=== PATIENT | male | born 1965 | race African-American/Black ===

== ENCOUNTER 2020-08-07 03:23 | Inpatient (IN) | payer OTHER ==
--- OUTSIDE RECORDS SUMMARY | 2020-08-07 03:42 | XMS ---
:1965 [facility] Support Name Relationship Address Phone RE Unavailable Unavailable Unavailable TIA LEVY BROTHER [address] [place] [address] Re-disclosure Warning The records that you are about to access may contain information from federally- assisted alcohol or drug abuse programs. If such information is present, then the following federally mandated warning applies: This information has been disclosed to you from records protected by federal confidentiality rules (42 CFR part 2). The federal rules prohibit you from making any further disclosure of this information unless further disclosure is expressly permitted by the written consent of the person to whom it pertains or as otherwise permitted by 42 CFR part 2. A general authorization for the release of medical or other information is NOT sufficient for this purpose. The Federal rules restrict any use of the information to criminally investigate or prosecute any alcohol or drug abuse patient.The records that you are about to access may contain highly sensitive health information, the redisclosure of which is protected by Article 27-F of the [facility] Public Health law. If you continue you may haveaccess to information: Regarding HIV / AIDS; Provided by facilities licensed or operated by the [facility] Office of Mental Health; or Provided by the [facility] Office for People With Developmental Disabilities. If such information is present, then the following [facility] mandated warning applies: This information has been disclosed to you from confidential records which are protected by state law. State law prohibits you from making any further disclosure of this information without the specific written consent of the person to whom it pertains, or as otherwise permitted by law. Any unauthorized further disclosure in violation of state law may result in a fine or usp sentence or both. A general authorization for the release of medical or other information is NOT sufficient authorization for further disclosure. Insurance Providers Payer name Policy type / Policy ID Covered Covered constitution party's Policy Plan Coverage type constitution party ID relationship to [employer]raz[employer] Information terrazas [facility] [id number]
[2020-08-07 03:50] VITALS: BMI 28.2
--- NOTE | 2020-08-07 04:32 | PDOC ---
History of Present Illness - General Chief Complaint: Pain, Acute Stated Complaint: PAIN TO EXTREMITIES Time Seen by Provider: 08/07/20 04:03 History Source: Patient - History of Present Illness Initial Comments: 08/07/20 05:11 54 year old male Report that he has been having palpitation and numbness and tingling to his hands and feet after taking Ayurvedic combination medication with his blood pressure medication and diuretics. Patient reported that he stopped taking the medication ordered online 2 days ago however continues to have palpitations. denies chest pain, Nausea, vomiting, fever/ chills, dizziness Past History - Medical History Allergies/Adverse Reactions: Allergies Allergy/AdvReac Type Severity Reaction Status Date / Time mayonnaise Allergy Unverified 08/09/20 12:46 shellfish derived Allergy Verified 08/07/20 03:50 Home Medications: Ambulatory Orders Amlodipine Besylate [Norvasc -] 10 mg PO DAILY 08/07/20 Atorvastatin Calcium [Lipitor] 20 mg PO HS 08/07/20 Spironolactone 25 mg PO DAILY 08/07/20 Metoprolol Tartrate [Lopressor -] 25 mg PO BID #60 tablet 08/09/20 - Psycho-Social/Smoking History Smoking History: Never smoked Information on smoking cessation initiated: No - Substance Abuse Hx (Audit-C & DAST Scrn) How often the patient has a drink containing alcohol: Never Score: In Men: 4 or > Positive; In Women: 3 or > Positive: 0 Screen Result (Pos requires Nsg. Audit-10AR): Negative In the last yr the pt used illegal drug/Rx for NonMed reason: No Score: Yes response is considered Positive: 0 Screen Result (Positive result requires Nsg. DAST-10): Negative *Physical Exam - Vital Signs Last Vital Signs Temp Pulse Resp BP Pulse Ox 98.6 F 86 16 133/96 98 08/07/20 03:37 08/07/20 03:37 08/07/20 03:37 08/07/20 03:37 08/07/20 03:37 - Physical Exam General Appearance: Yes: Appropriately Dressed HEENT: positive: Normal ENT Inspection Respiratory/Chest: positive: Lungs Clear, Normal Breath Sounds Cardiovascular: positive: Regular Rhythm, Regular Rate Extremity: positive: Normal Capillary Refill, Normal Inspection, Normal Range of Motion Integumentary: positive: Normal Color, Dry, Warm Neurologic: positive: Fully Oriented, Alert, Normal Mood/Affect ED Treatment Course - LABORATORY CBC & Chemistry Diagram: 08/07/20 04:40 08/09/20 05:30 Medical Decision Making - Medical Decision Making 08/07/20 05:13 A: palpitations; hyponatremia P: labs EKg patient signed out to IM resident. patient admitted under dr. rodriguez service 08/07/20 06:22 Discharge - Discharge Information Problems reviewed: Yes Clinical Impression/Diagnosis: Palpitations, Hyponatremia, Hypokalemia Condition: Stable Disposition: HOME - Admission Yes - Follow up/Referral - Patient Discharge Instructions - Post Discharge Activity
[2020-08-07 05:13] LABS: BASO % 0.6 % (0-2.0); EOS % 0.4 % (0-4.5); HEMATOCRIT 45.1 % (35.4-49); HEMOGLOBIN 15.3 GM/dL (11.7-16.9); LYMPH % 30.4 % (8-40); MCH 27.4 pg (25.7-33.7); MCHC 33.9 g/dl (32.0-35.9); MEAN CELL VOLUME 80.8 fl (80-96); MONO % 8.8 % (3.8-10.2); NEUT % 59.8 % (42.8-82.8); PLATELET COUNT 485 K/MM3 (134-434); RBC 5.58 M/mm3 (4.00-5.60); WHITE BLOOD COUNT 7.6 K/mm3 (4.0-10.0)
[2020-08-07 05:43] LABS: ALBUMIN 4.3 g/dl (3.4-5.0); ALK PHOS 68 U/L (45-117); ANION GAP 11 MMOL/L (8-16); BILIRUBIN,TOTAL 0.6 mg/dL (0.2-1); BLOOD UREA NITROGEN 17.9 mg/dL (7-18); CALCIUM 9.1 mg/dL (8.5-10.1); CHLORIDE 87 mmol/L (98-107); CO2 27 mmol/L (21-32); GLUCOSE,RANDOM 97 mg/dL (74-106); MAGNESIUM 2.1 mg/dL (1.8-2.4); POTASSIUM 3.2 mmol/L (3.5-5.1); SGOT/AST 30 U/L (15-37); SGPT/ALT 39 U/L (13-61); SODIUM 125 mmol/L (136-145); TOT PROT 8.9 g/dl (6.4-8.2)
[2020-08-07] MEDS ORDERED: SODIUM CHLORIDE 1,000 ML IV STA (05:52)
[2020-08-07] MEDS ORDERED: POTASSIUM CHLORIDE TABS 20 MEQ TABLET.ER (FP) PO ONE ×3 (05:53→21:32)
--- OUTSIDE RECORDS SUMMARY | 2020-08-07 06:28 | XMS ---
:1965 [facility] Support Name Relationship Address Phone RE, RETIRED Unavailable Unavailable Unavailable RE Unavailable Unavailable Unavailable TIA LEVY BROTHER [address] [place] [address] Re-disclosure Warning The records that you are [...] is protected by Article 27-F of the [facility] Public Health law. If you continue you may haveaccess to information: Regarding HIV / AIDS; Provided by facilities licensed or operated by the [facility] Office of Mental Health; or Provided by the [facility] Office for People With Developmental Disabilities. If such information is present, then the following [facility] mandated warning applies: This information has been [...] law may result in a fine or chcf sentence or both. A general authorization for the release of medical or other information is NOT sufficient authorization for further disclosure. Insurance Providers Payer name Policy type / Policy ID Covered Covered democrat's Policy Plan Coverage type democrat ID relationship to Terrazas Information [facility]razas [facility] [id number]
[2020-08-07] MEDS ORDERED: KCL 10 MEQ IVPB 10 MEQ/100 ML INFUS.BAG IVPB ONE (06:31)
[2020-08-07] MEDS: KCL 10 MEQ IVPB 10 MEQ/100 ML INFUS.BAG IVPB SCH ×2 (06:33→07:45)
--- NOTE | 2020-08-07 07:23 | HP ---
CHIEF COMPLAINT: palpatations PCP: Dr Rios HISTORY OF PRESENT ILLNESS: Patient is a 54 y/o male with a history of CKD stage 3 and HTN who presents for palpatations. Patients CKD is related to the HTN, he has recently been taking herbal supplements from [place] to help with his kidney function. The list includes: asparagus racemosus, azadirachta indica, balsamodendron za, berberies arstata, juniper berries, crateva nurvala, celery, marshmallow root, denelion root, kaasni, and tribulus. patient has been feelign palpatations for a few days. Notes the palpatations have been coming and going for a few days, nothing brings it on and they last for a few hours. Patient denies fever chills, dizziness, tremors, syncope, or nausea. ER course was notable for: (1) (2) (3) Recent Travel: PAST MEDICAL HISTORY: CKD stage 3 and HTN PAST SURGICAL HISTORY: denies Social History: Smoking: denies Alcohol: denies Drugs: denies Allergies shellfish derived Allergy (Verified 08/07/20 03:50) HOME MEDICATIONS: REVIEW OF SYSTEMS CONSTITUTIONAL: Absent: fever, chills, diaphoresis, generalized weakness, malaise, loss of appetite, weight change HEENT: Absent: rhinorrhea, nasal congestion, throat pain, throat swelling, difficulty swallowing, mouth swelling, ear pain, eye pain, visual changes CARDIOVASCULAR: palpitations Absent: chest pain, syncope, irregular heart rate, lightheadedness, peripheral edema RESPIRATORY: Absent: cough, shortness of breath, dyspnea with exertion, orthopnea, wheezing, stridor, hemoptysis GASTROINTESTINAL: Absent: abdominal pain, abdominal distension, nausea, vomiting, diarrhea, constipation, melena, hematochezia GENITOURINARY: Absent: dysuria, frequency, urgency, hesitancy, hematuria, flank pain, genital pain MUSCULOSKELETAL: Absent: myalgia, arthralgia, joint swelling, back pain, neck pain SKIN: Absent: rash, itching, pallor HEMATOLOGIC/IMMUNOLOGIC: Absent: easy bleeding, easy bruising, lymphadenopathy, frequent infections ENDOCRINE: Absent: unexplained weight gain, unexplained weight loss, heat intolerance, cold intolerance NEUROLOGIC: Absent: headache, focal weakness or paresthesias, dizziness, unsteady gait, seizure, mental status changes, bladder or bowel incontinence PSYCHIATRIC: Absent: anxiety, depression, suicidal or homicidal ideation, hallucinations. PHYSICAL EXAMINATION Vital Signs - 24 hr 08/07/20 08/07/20 03:37 06:17 Temperature 98.6 F 98.7 F Pulse Rate 86 Pulse Rate [ 80 Left Radial] Respiratory 16 18 Rate Blood Pressure 133/96 Blood Pressure 127/82 [Left Arm] O2 Sat by Pulse 98 98 Oximetry (%) GENERAL: Awake, alert, and fully oriented, in no acute distress. HEAD: Normal with no signs of trauma. EYES: Pupils equal, round and reactive to light, extraocular movements intact, sclera anicteric, . EARS, NOSE, THROAT: . Moist mucous membranes. NECK: Normal range of motion, supple without lymphadenopathy, JVD, or masses. LUNGS: Breath sounds equal, clear to auscultation bilaterally. No wheezes, and no crackles. No accessory muscle use. HEART: Regular rate and rhythm, normal S1 and S2 without murmur, rub or gallop. ABDOMEN: Soft, nontender, not distended, normoactive bowel sounds, no guarding, no rebound, no masses. No hepatomegaly orsplenomegaly. MUSCULOSKELETAL: Normal range of motion at all joints. LOWER EXTREMITIES: 2+ pulses, warm, well-perfused. No calf tenderness. No per ipheral edema. NEUROLOGICAL: no tremors Normal gait. PSYCHIATRIC: Cooperative. Good eye contact. Appropriate mood and affect. SKIN: Warm, dry, normal turgor, no rashes or lesions noted, normal capillary refill. CBC, BMP 08/07/20 04:40 08/07/20 07:58 ASSESSMENT/PLAN: Patient is a 54 y/o male with a history of CKD stage 3 and HTN who is admitted for palpatations likely 2/2 to electrolyte abdnormality. #Palpatations - in the setting of hyponatremia and hypokalemia - hyponatremia of unknown source, appears euvolemic, could be 2/2 to chl orathalidone use - f/u urine and serum osmolality - monitor NA Q6h, do not have it increase over 10 - will continue NS @ 100 - Nephro on board - f/u cortisol, tsh for endocrine causes of hyponatremia - CXR clear: unlikely malignancy related hyponatremia #hx CKD - continue to monitor cr, unknown baseline - followed by fadi #DVT ppx: heparin tid FEN - renal diet - NS @ 100 Dispo: monitor on tele Family Medical History Family History: As Documented Visit type - Emergency Visit Emergency Visit: Yes ED Registration Date: 08/07/20 Care time: The patient presented to the Emergency Department on the above date and was hospitalized for further evaluation of their emergent condition. - New Patient This patient is new to me today: Yes Date on this admission: 08/09/20 - Critical Care Critical Care patient: No ATTENDING PHYSICIAN STATEMENT I saw and evaluated the patient. I reviewed the resident's note and discussed the case with the resident. I agree with the resident's findings and plan as documented. SUBJECTIVE: OBJECTIVE: ASSESSMENT AND PLAN:
--- NOTE | 2020-08-07 07:28 | PN ---
Teaching Attending Note Name of Resident: Archie Duncan (Nephrology) ATTENDING PHYSICIAN STATEMENT I saw and evaluated the patient. I reviewed the resident's note and discussed the case with the resident. I agree with the resident's findings and plan as documented. Pt is a 54 year old male with pmhx of ckd, htn, hld, who presents with palpitations for 3 days. He was found to be hyponatremic and hypokalemic. He was on chlorthalisone and aldactone. he went to an herbal specialist who started about 11 substances. Some of which can cause a diuresis. He feels better today. pmhx htn hld allergies shelfish ros neg familh hx non contrib Current Medications Generic Name Dose Route Start Last Admin Trade Name Freq PRN Reason Stop Dose Admin Amlodipine Besylate 10 mg 08/08/20 10:17 Norvasc - PO DAILY FRANSICO Atorvastatin Calcium 20 mg 08/07/20 22:00 Lipitor - PO HS FRANSICO Heparin Sodium (Porcine) 5,000 unit 08/07/20 14:00 Heparin - SQ TID FRANSICO Sodium Chloride 1,000 mls @ 100 mls/hr 08/07/20 08:45 08/07/20 08:52 Normal Saline - IV 100 mls/hr ASDIR FRANSICO Administration Spironolactone 25 mg 08/08/20 10:18 Aldactone - PO DAILY FRANSICO Laboratory Tests 08/07/20 08/07/20 08/07/20 04:40 07:19 07:58 Sodium 125 L 128 L Potassium 3.5 Serum Osmolality 272 L TSH 1.16 Cortisol AM Sample 08/07/20 07:58 Sodium Potassium Serum Osmolality TSH Cortisol AM Sample Pending cardio s1s2 pulm clear GI soft ext neg edema neuro awake and alert Impression 1. hyponatremia 2. hypokalemia 3. htn 4. ckd 5. hld Plan - replace potassium - cont saline - hold supplements - stop chlorthalidone - monitor lytes - check ultrasound
[2020-08-07 07:55] LABS: URINE APPEARANCE CLEAR; URINE BILIRUBIN NEGATIVE (NEGATIVE); URINE COLOR YELLOW; URINE GLUCOSE (UA) NEGATIVE (NEGATIVE); URINE KETONE TRACE (NEGATIVE); URINE LEUK ESTERASE NEGATIVE (NEGATIVE); URINE NITRITE NEGATIVE (NEGATIVE); URINE PROTEIN NEGATIVE (NEGATIVE); URINE UROBILINOGEN 0.2 mg/dL (0.2-1.0)
[2020-08-07] MEDS ORDERED: KCL 10 MEQ IVPB 20 MEQ/200 ML INFUS.BAG IVPB ONE (07:58)
[2020-08-07 08:39] LABS: ANION GAP 8 MMOL/L (8-16); BLOOD UREA NITROGEN 17.7 mg/dL (7-18); CHLORIDE 91 mmol/L (98-107); CO2 30 mmol/L (21-32); CREATININE 1.9 mg/dL (0.55-1.3); GLUCOSE,RANDOM 79 mg/dL (74-106); MAGNESIUM 2.2 mg/dL (1.8-2.4); PHOSPHOROUS 3.4 mg/dL (2.5-4.9); POTASSIUM 3.5 mmol/L (3.5-5.1); SODIUM 128 mmol/L (136-145)
[2020-08-07] MEDS ORDERED: SODIUM CHLORIDE 1,000 ML IV SCH (08:45)
--- NOTE | 2020-08-07 11:09 | EKG ---
Test Reason : Blood Pressure : / mmHG Vent. Rate : 095 BPM Atrial Rate : 095 BPM P-R Int : 166 ms QRS Dur : 084 ms QT Int : 350 ms P-R-T Axes : 075 000 073 degrees QTc Int : 439 ms NORMAL SINUS RHYTHM RIGHT ATRIAL ENLARGEMENT BORDERLINE ECG NO PREVIOUS ECGS AVAILABLE Confirmed by MD Mikayla, Lazaro ([id number]) on 08/07/2020 11:09:11 AM Referred By: Confirmed By:Lazaro Degroot MD
--- NOTE | 2020-08-07 11:26 | CONSULT ---
Consultation: REQUESTING PROVIDER: Dr. Lindquist Nephrology service- resident consult note CONSULT REQUEST: We have been asked to medically evaluate this patient for acute kidney injury, hyponatremia. HISTORY OF PRESENT ILLNESS: Patient is a 54 year old male with history of CKD III, hypertension, hyperlipidemia, presents with complaint of palpitations ongoing for the past three days. Denies clear inciting features. Patient does endorse recently starting numerous herbal supplements last week due to concern over his kidney function. In addition he is taking Chlorthalidone with Spronolactone. Upon admission, patient noted to be hyponatremic to 125, with BUN 17.9 Cr 2.0. Admits prior cardiac workup with exercise stress test over 10 years ago which he states was normal result. Denies syncopal episode. Denies subjective fevers, chills, shortness of breath, chest pain, abdominal pain, nausea, vomiting. Medical history: hypertension, hyperlipidemia, chronic kidney disease Surgical history: denies Family history: Mother: passed due to RI at 37 years old Father: hypertension Social: Denies illicit drug use, alcohol consumption. Denies cigarette smoking. REVIEW OF SYSTEMS: As per HPI PHYSICAL EXAMINATION Vital Signs - 24 hr 08/07/20 08/07/20 08/07/20 03:37 06:17 10:47 Temperature 98.6 F 98.7 F Pulse Rate 86 Pulse Rate [ 80 71 Left Radial] Respiratory 16 18 17 Rate Blood Pressure 133/96 Blood Pressure 127/82 125/97 [Left Arm] O2 Sat by Pulse 98 98 97 Oximetry (%) GENERAL: The patient is awake, alert, and fully oriented, in no acute distress. HEAD: Normocephalic, atraumatic. EYES: PERRL, extraocular movements intact, sclera anicteric, conjunctiva clear. ENT: Oropharynx clear, without erythema or exudates. Moist mucous membranes. NECK: Trachea midline, full range of motion. Supple without lymphadenopathy. LUNGS: Breath sounds equal, clear to auscultation bilaterally. No wheezes, no crackles. No accessory muscle use. HEART: Regular rate and rhythm. S1, S2 without murmur, rub or gallop. ABDOMEN: Soft, nondistended, nontender to light and deep palpation x4 quadrants. No rebound tenderness, no guarding. Normoactive bowel sounds x4 quadrants. No hepatosplenomegaly, no masses appreciated. EXTREMITIES: 2+ radial, dorsalis pedis pulses bilaterally. Warm, well-perfused. No lower extremity edema bilaterally. NEUROLOGICAL: Cranial nerves II through XII grossly intact. Normal speech. No gross focal deficits. PSYCH: Normal mood, normal affect upon my encounter. SKIN: Warm, dry Laboratory Results - last 24 hr 08/07/20 08/07/20 08/07/20 04:40 04:40 06:28 WBC 7.6 RBC 5.58 Hgb 15.3 Hct 45.1 MCV 80.8 MCH 27.4 MCHC 33.9 RDW 14.0 Plt Count 485 H MPV 7.0 L Absolute Neuts (auto) 4.6 Neutrophils % 59.8 Lymphocytes % 30.4 Monocytes % 8.8 Eosinophils % 0.4 Basophils % 0.6 Nucleated RBC % 0 Sodium 125 L Potassium 3.2 L Chloride 87 L Carbon Dioxide 27 Anion Gap 11 BUN 17.9 Creatinine 2.0 H Est GFR (CKD-EPI)AfAm 41.99 Est GFR (CKD-EPI)NonAf 36.23 Random Glucose 97 Serum Osmolality Calcium 9.1 Phosphorus Magnesium 2.1 Total Bilirubin 0.6 AST 30 ALT 39 Alkaline Phosphatase 68 Creatine Kinase 514 H Creatine Kinase Index 0.4 CK-MB (CK-2) 2.4 Troponin I < 0.02 Total Protein 8.9 H Albumin 4.3 TSH Urine Color Yellow Urine Appearance Clear Urine pH 6.0 Ur Specific Bromide 1.006 L Urine Protein Negative Urine Glucose (UA) Negative Urine Ketones Trace H Urine Blood Negative Urine Nitrite Negative Urine Bilirubin Negative Urine Urobilinogen 0.2 Ur Leukocyte Esterase Negative 08/07/20 08/07/20 07:19 07:58 WBC RBC Hgb Hct MCV MCH MCHC RDW Plt Count MPV Absolute Neuts (auto) Neutrophils % Lymphocytes % Monocytes % Eosinophils % Basophils % Nucleated RBC % Sodium 128 L Potassium 3.5 Chloride 91 L Carbon Dioxide 30 Anion Gap 8 BUN 17.7 Creatinine 1.9 H Est GFR (CKD-EPI)AfAm 44.68 Est GFR (CKD-EPI)NonAf 38.55 Random Glucose 79 Serum Osmolality 272 L Cancelled Calcium 9.0 Phosphorus 3.4 Magnesium 2.2 Total Bilirubin AST ALT Alkaline Phosphatase Creatine Kinase Creatine Kinase Index CK-MB (CK-2) Troponin I < 0.02 Total Protein Albumin TSH 1.16 Urine Color Urine Appearance Urine pH Ur Specific Bromide Urine Protein Urine Glucose (UA) Urine Ketones Urine Blood Urine Nitrite Urine Bilirubin Urine Urobilinogen Ur Leukocyte Esterase Active Medications Generic Name Dose Route Start Last Admin Trade Name Bell PRN Reason Stop Dose Admin Amlodipine Besylate 10 mg 08/08/20 10:17 Norvasc - PO DAILY FRANSICO Atorvastatin Calcium 20 mg 08/07/20 22:00 Lipitor - PO HS FRANSICO Heparin Sodium (Porcine) 5,000 unit 08/07/20 14:00 Heparin - SQ TID FRANSICO Sodium Chloride 1,000 mls @ 100 mls/hr 08/07/20 08:45 08/07/20 08:52 Normal Saline - IV 100 mls/hr ASDIR FRANSICO Administration Spironolactone 25 mg 08/08/20 10:18 Aldactone - PO DAILY FRANSICO ASSESSMENT/PLAN: Patient is a 54 year old male with history of CKD III, hypertension, hyperlipidemia, presents with complaint of palpitations. Impression CKD III Hyponatremia Palpitations Hypertension Hyperlipidemia Plan Hyponatremia likely in setting of thiazide diuretic. Further, several of patient's herbal remedies function as diuretics, compounding potential etiology for hyponatremia. Advised patient to withhold from further herbal supplements at this time. Recommend stopping Chlorthalidone. Sodium responding appropriately. Avoid over-correction greater than 8mmol/ L within 24 hours. Follow urine electrolytes, osmolality Agree with Cortisol to rule out adrenal insufficiency as potential contributing etiology for hyponatremia. Follow BMP Monitor intake, output Avoid nephrotoxic agents Disposition: We will continue to follow the patient. Thank you for this consultative opportunity. Visit type - Emergency Visit Emergency Visit: Yes ED Registration Date: 08/07/20 Care time: The patient presented to the Emergency Department on the above date and was hospitalized for further evaluation of their emergent condition. - New Patient This patient is new to me today: Yes Date on this admission: 08/07/20 - Critical Care Critical Care patient: No ATTENDING PHYSICIAN STATEMENT I saw and evaluated the patient. I reviewed the resident's note and discussed the case with the resident. I agree with the resident's findings and plan as documented. SUBJECTIVE: OBJECTIVE: ASSESSMENT AND PLAN:
[2020-08-07 14:05] LABS: BLOOD UREA NITROGEN 17.9 mg/dL (7-18); CALCIUM 8.8 mg/dL (8.5-10.1); CREATININE 1.9 mg/dL (0.55-1.3); POTASSIUM 3.6 mmol/L (3.5-5.1)
[2020-08-07] MEDS: HEPARIN NA (PORCINE) 5,000 UNITS/ML 1ML VIAL SQ SCH ×2 (14:41→21:01)
[2020-08-07] MEDS ORDERED: FLU VACCINE (FLULAVAL) PF 60 MCG/0.5 ML SYRINGE 2020-2021 IM ONE (19:27)
[2020-08-07 20:25] LABS: BLOOD UREA NITROGEN 21.9 mg/dL (7-18); CALCIUM 9.2 mg/dL (8.5-10.1); CREATININE 1.8 mg/dL (0.55-1.3); POTASSIUM 3.4 mmol/L (3.5-5.1)
[2020-08-07] MEDS: ATORVASTATIN CA 20 MG TABLET (FP) PO SCH (21:02)
--- NOTE | 2020-08-07 22:00 | PN ---
Teaching Attending Note Name of Resident: Pamela Lindquist ATTENDING PHYSICIAN STATEMENT I saw and evaluated the patient. I reviewed the resident's note and discussed the case with the resident. I agree with the resident's findings and plan as documented. SUBJECTIVE: Patient seen and examined at bedside, admitted for volume depletion, hyponatremia, weakness and palpitations taking many different herbal supplements. OBJECTIVE: GA tired appearing, AAox3 HEENT NC/AT, no JVD, dry MM Chest CTAB, no crackles CVS s1, s2+, RRR Abd Soft, NT, ND, BS+ Ext no LE edema, no calf tenderness Vital Signs (72 hours) 08/07/20 08/07/20 08/07/20 03:37 06:17 10:47 Temperature 98.6 F 98.7 F Pulse Rate 86 Pulse Rate [ 80 71 Left Radial] Respiratory 16 18 17 Rate Blood Pressure 133/96 Blood Pressure 127/82 125/97 [Left Arm] O2 Sat by Pulse 98 98 97 Oximetry (%) 08/07/20 08/07/20 08/07/20 13:31 14:30 16:00 Temperature 98.6 F 98.1 F Pulse Rate 76 64 Pulse Rate [ 77 Left Radial] Respiratory 19 21 H 20 Rate Blood Pressure 127/88 131/86 Blood Pressure 122/84 [Left Arm] O2 Sat by Pulse 99 97 Oximetry (%) 08/07/20 08/07/20 19:41 20:00 Temperature 98 F Pulse Rate 71 Pulse Rate [ Left Radial] Respiratory 20 12 Rate Blood Pressure 116/82 Blood Pressure [Left Arm] O2 Sat by Pulse 97 100 Oximetry (%) Laboratory Results - last 24 hr 08/07/20 08/07/20 08/07/20 04:40 04:40 06:28 WBC 7.6 RBC 5.58 Hgb 15.3 Hct 45.1 MCV 80.8 MCH 27.4 MCHC 33.9 RDW 14.0 Plt Count 485 H MPV 7.0 L Absolute Neuts (auto) 4.6 Neutrophils % 59.8 Lymphocytes % 30.4 Monocytes % 8.8 Eosinophils % 0.4 Basophils % 0.6 Nucleated RBC % 0 Sodium 125 L Potassium 3.2 L Chloride 87 L Carbon Dioxide 27 Anion Gap 11 BUN 17.9 Creatinine 2.0 H Est GFR (CKD-EPI)AfAm 41.99 Est GFR (CKD-EPI)NonAf 36.23 Random Glucose 97 Serum Osmolality Calcium 9.1 Phosphorus Magnesium 2.1 Total Bilirubin 0.6 AST 30 ALT 39 Alkaline Phosphatase 68 Creatine Kinase 514 H Creatine Kinase Index 0.4 CK-MB (CK-2) 2.4 Troponin I < 0.02 Total Protein 8.9 H Albumin 4.3 TSH Urine Color Yellow Urine Appearance Clear Urine pH 6.0 Ur Specific [place] 1.006 L Urine Protein Negative Urine Glucose (UA) Negative Urine Ketones Trace H Urine Blood Negative Urine Nitrite Negative Urine Bilirubin Negative Urine Urobilinogen 0.2 Ur Leukocyte Esterase Negative Urine Osmolality Ur Random Sodium 08/07/20 08/07/20 08/07/20 07:19 07:58 12:25 WBC RBC Hgb Hct MCV MCH MCHC RDW Plt Count MPV Absolute Neuts (auto) Neutrophils % Lymphocytes % Monocytes % Eosinophils % Basophils % Nucleated RBC % Sodium 128 L Potassium 3.5 Chloride 91 L Carbon Dioxide 30 Anion Gap 8 BUN 17.7 Creatinine 1.9 H Est GFR (CKD-EPI)AfAm 44.68 Est GFR (CKD-EPI)NonAf 38.55 Random Glucose 79 Serum Osmolality 272 L Cancelled Calcium 9.0 Phosphorus 3.4 Magnesium 2.2 Total Bilirubin AST ALT Alkaline Phosphatase Creatine Kinase Creatine Kinase Index CK-MB (CK-2) Troponin I < 0.02 Total Protein Albumin TSH 1.16 Urine Color Urine Appearance Urine pH Ur Specific [place] Urine Protein Urine Glucose (UA) Urine Ketones Urine Blood Urine Nitrite Urine Bilirubin Urine Urobilinogen Ur Leukocyte Esterase Urine Osmolality 145 L Ur Random Sodium 27 L 08/07/20 08/07/20 13:15 19:20 WBC RBC Hgb Hct MCV MCH MCHC RDW Plt Count MPV Absolute Neuts (auto) Neutrophils % Lymphocytes % Monocytes % Eosinophils % Basophils % Nucleated RBC % Sodium 133 L 137 Potassium 3.6 3.4 L Chloride 97 L 99 Carbon Dioxide 27 32 Anion Gap 8 6 L BUN 17.9 21.9 H Creatinine 1.9 H 1.8 H Est GFR (CKD-EPI)AfAm 44.68 47.70 Est GFR (CKD-EPI)NonAf 38.55 41.16 Random Glucose 108 H 91 Serum Osmolality Calcium 8.8 9.2 Phosphorus Magnesium Total Bilirubin AST ALT Alkaline Phosphatase Creatine Kinase Creatine Kinase Index CK-MB (CK-2) Troponin I Total Protein Albumin TSH Urine Color Urine Appearance Urine pH Ur Specific M[place]zon Urine Protein Urine Glucose (UA) Urine Ketones Urine Blood Urine Nitrite Urine Bilirubin Urine Urobilinogen Ur Leukocyte Esterase Urine Osmolality Ur Random Sodium Home Medications Medication Instructions Recorded Amlodipine Besylate [Norvasc -] 10 mg PO DAILY 08/07/20 Atorvastatin Calcium [Lipitor] 20 mg PO HS 08/07/20 Chlorthalidone 25 mg PO DAILY 08/07/20 Spironolactone 25 mg PO DAILY 08/07/20 Current Medications Generic Name Dose Route Start Last Admin Trade Name Bell PRN Reason Stop Dose Admin Amlodipine Besylate 10 mg 08/08/20 10:17 Norvasc - PO DAILY [facility] Atorvastatin Calcium 20 mg 08/07/20 22:00 08/07/20 21:02 Lipitor - PO 20 mg HS [facility] Administration Heparin Sodium (Porcine) 5,000 unit 08/07/20 14:00 08/07/20 21:01 Heparin - SQ 5,000 unit TID [facility] Administration Spironolactone 25 mg 08/08/20 10:18 Aldactone - PO DAILY [facility] ASSESSMENT AND PLAN: 54 M RUSS on CKD HTN Palpitations r/o arrythmia (?due to herbal supplements) HLD Plan: IV hydration w/ NS, trend CRE, avoid overcorrection of sodium DC Diuretics, Norvasc for BP control Renal following Advise strict avoidance of OTC herbal supplements DVT ppx: Heparin SC
[2020-08-08] MEDS: HEPARIN NA (PORCINE) 5,000 UNITS/ML 1ML VIAL SQ SCH ×3 (05:56→21:10)
[2020-08-08] MEDS ORDERED: POTASSIUM CHLORIDE TABS 20 MEQ TABLET.ER (FP) PO ONE (08:30)
[2020-08-08] MEDS: amLODIPine BESYLATE 10 MG TABLET (FP) PO SCH (09:34)
[2020-08-08] MEDS: SPIRONOLACTONE 25 MG TABLET PO SCH (09:34)
[2020-08-08] MEDS ORDERED: SPIRONOLACTONE 25 MG TABLET PO SCH (10:00)
[2020-08-08] MEDS ORDERED: amLODIPine BESYLATE 10 MG TABLET (FP) PO SCH (10:00)
--- NOTE | 2020-08-08 11:24 | HP ---
Admitting History and Physical - Primary Care Physician PCP: Joshua Varela - Admission Chief Complaint: Palpitations. Hyponatremia. Hypokalemia History of Present Illness: Patient is a 54 y/o male with a history of CKD stage 3 and HTN who presents for palpatations. Patients CKD is related to the HTN, he has recently been taking herbal supplements from [place] to help with his kidney function. The list includes: asparagus racemosus, azadirachta indica, balsamodendron za, berberies arstata, juniper berries, crateva nurvala, celery, marshmallow root, denelion root, kaasni, and tribulus. patient has been feelign palpatations for a few days. Notes the palpatations have been coming and going for a few days, nothing brings it on and they last for a few hours. Patient denies fever chills, dizziness, tremors, syncope, or nausea. History Source: Patient Limitations to Obtaining History: No Limitations - Smoking History Smoking history: Never smoked Home Medications - Allergies Allergies/Adverse Reactions: Allergies Allergy/AdvReac Type Severity Reaction Status Date / Time [facility] [place] Allergy Unverified 08/09/20 12:46 shellfish derived Allergy Verified 08/07/20 03:50 - Home Medications Home Medications: Ambulatory Orders Amlodipine Besylate [Norvasc -] 10 mg PO DAILY 08/07/20 Atorvastatin Calcium [Lipitor] 20 mg PO HS 08/07/20 Spironolactone 25 mg PO DAILY 08/07/20 Metoprolol Tartrate [Lopressor -] 25 mg PO BID #60 tablet 08/09/20 Review of Systems - Review of Systems Constitutional: reports: No Symptoms Eyes: reports: No Symptoms HENT: reports: No Symptoms Neck: reports: No Symptoms Cardiovascular: reports: Palpitations Respiratory: reports: No Symptoms Gastrointestinal: reports: No Symptoms Genitourinary: reports: No Symptoms Breasts: reports: No Symptoms Reported Musculoskeletal: reports: No Symptoms Integumentary: reports: No Symptoms Neurological: reports: No Symptoms Endocrine: reports: No Symptoms Hematology/Lymphatic: reports: No Symptoms Psychiatric: reports: No Symptoms Physical Examination Vital Signs: Vital Signs Temperature 98.4 F 08/08/20 10:00 Pulse Rate 89 08/08/20 10:00 Respiratory Rate 15 08/08/20 10:00 Blood Pressure 124/91 08/08/20 10:00 O2 Sat by Pulse Oximetry (%) 99 08/08/20 10:00 Constitutional: Yes: Well Nourished, No Distress, Calm Cardiovascular: Yes: Regular Rate and Rhythm Respiratory: Yes: Regular, CTA Bilaterally Gastrointestinal: Yes: Normal Bowel Sounds, Soft Renal/: Yes: WNL Musculoskeletal: Yes: WNL Extremities: Yes: WNL Edema: No Peripheral Pulses WNL: Yes Neurological: Yes: Alert, Oriented Psychiatric: Yes: Alert, Oriented Labs: CBC, BMP 08/07/20 04:40 08/07/20 19:20 Problem List - Problems (1) Hypokalemia Assessment/Plan: -improved -Supplement KCl -Seen by Nephrology -Monitor trend Problems reviewed: Yes Code(s): E87.6 - HYPOKALEMIA (2) Hyponatremia Assessment/Plan: -Resolved -monitor trend Problems reviewed: Yes Code(s): E87.1 - HYPO-OSMOLALITY AND HYPONATREMIA (3) Palpitations Assessment/Plan: -Resolved -EKG- NSR -Cardiology consult -Tele monitor Problems reviewed: Yes Code(s): R00.2 - PALPITATIONS (4) CKD (chronic kidney disease) Assessment/Plan: -D/C chlorathalidone -Instructed to stop herbal supplements -Nephrology consult Problems reviewed: Yes Code(s): N18.9 - CHRONIC KIDNEY DISEASE, UNSPECIFIED Assessment/Plan See problem list
--- NOTE | 2020-08-08 14:58 | CON.CARD ---
Consult Consult Specialty:: cardiology Referred by:: lionel Reason for Consultation:: palpitations - History of Present Illness Chief Complaint: leg and hand pain/cramping. palpitations/elevated hr History of Present Illness: 54 year old male with a pmhx of ckd, htn, and hld who was recently started on many different herbal supplements. He has been noticing hand and feet cramping and "feeling like they are falling asleep". He than noticed HR elevated so came to the ER. Denies any chest pain or sob or any history of this. Walks often with no exertional complaints. Says he doesn't really feel palpitations but occasional skipped beat. Found to be hyponatremic and hypokalemic. Feels fine at this time. Denies drug or etoh use. Drinks two cups green tea as well a day. EKG sinus rhythm, bren, no ischemic changes Tele: sinus with pvc's Na 125 and K 3.2 - History Source History Provided By: Patient, Medical Record - Smoking History Smoking history: Never smoked Home Medications - Allergies Allergies/Adverse Reactions: Allergies Allergy/AdvReac Type Severity Reaction Status Date / Time shellfish derived Allergy Verified 08/07/20 03:50 - Home Medications Home Medications: Ambulatory Orders Amlodipine Besylate [Norvasc -] 10 mg PO DAILY 08/07/20 Atorvastatin Calcium [Lipitor] 20 mg PO HS 08/07/20 Chlorthalidone 25 mg PO DAILY 08/07/20 Spironolactone 25 mg PO DAILY 08/07/20 Vital Signs: Vital Signs Temperature 98.2 F 08/08/20 13:58 Pulse Rate 83 08/08/20 13:58 Respiratory Rate 16 08/08/20 13:58 Blood Pressure 127/83 08/08/20 13:58 O2 Sat by Pulse Oximetry (%) 97 08/08/20 13:58 Constitutional: Yes: No Distress Neck: Yes: WNL Respiratory: Yes: CTA Bilaterally Gastrointestinal: Yes: Soft Cardiovascular: Yes: Regular Rate and Rhythm JVD: No Carotid Bruit: No PMI: Non-Displaced Heart Sounds: Yes: S1, S2 Murmur: No: Systolic Murmur Edema: No - Other Data Labs, Other Data: CBC, BMP 08/07/20 04:40 08/07/20 19:20 Imaging - Results Chest X-ray: Report Reviewed EKG: Image Reviewed Problem List - Problems (1) Hypokalemia Code(s): E87.6 - HYPOKALEMIA (2) Palpitations Code(s): R00.2 - PALPITATIONS Assessment/Plan 54 year old male with a pmhx of ckd, htn, and hld who was recently started on many different herbal supplements. He has been noticing hand and feet cramping and "feeling like they are falling asleep". He than noticed HR elevated so came to the ER. Denies any chest pain or sob or any history of this. Walks often with no exertional complaints. Says he doesn't really feel palpitations but occasional skipped beat. Found to be hyponatremic and hypokalemic. Feels fine at this time. EKG sinus rhythm, bren, no ischemic changes Tele: sinus with pvc's Na 125 and K 3.2 1) CV/palpitations EKG with no ischemic changes. No chest pain or sob. Tele sinus with pvc's Correct Na and K. Stop clorthalidone Continue amlodipine and spironolactone Start metoprolol 25mg q12 given pvc's No murmurs on exam or signs of chf. CXR clear lungs Would plan for echocardiogram and 30 day event monitor which can be done as an outpatient. If remains K on low normal side than consider renin/massimo levels as outpatient to look for secondary causes of htn and hypokalemia Stop the herbal supplements and green tea. Can follow up upon discharge with Dr. Allred [phone] Pamela Holm at Dr. Varela's office.
--- NOTE | 2020-08-08 15:32 | PN ---
Progress Note, Physician History of Present Illness: Pt seen and examined at bedside. He is awake and alert. He denies shortness of breath. - Current Medication List Current Medications: Active Medications Amlodipine Besylate (Norvasc -) 10 mg PO DAILY [facility] Last Admin: 08/08/20 09:34 Dose: Not Given Documented by: Atorvastatin Calcium (Lipitor -) 20 mg PO HS [facility] Last Admin: 08/07/20 21:02 Dose: 20 mg Documented by: Heparin Sodium (Porcine) (Heparin -) 5,000 unit SQ TID [facility] Last Admin: 08/08/20 05:56 Dose: 5,000 unit Documented by: Spironolactone (Aldactone -) 25 mg PO DAILY [facility] Last Admin: 08/08/20 09:34 Dose: Not Given Documented by: - Objective Vital Signs: Vital Signs Temperature 98.2 F 08/08/20 13:58 Pulse Rate 83 08/08/20 13:58 Respiratory Rate 16 08/08/20 13:58 Blood Pressure 127/83 08/08/20 13:58 O2 Sat by Pulse Oximetry (%) 97 08/08/20 13:58 Constitutional: Yes: Calm Eyes: Yes: Conjunctiva Clear HENT: Yes: Atraumatic Cardiovascular: Yes: S1, S2 Respiratory: Yes: CTA Bilaterally Gastrointestinal: Yes: Normal Bowel Sounds, Soft Genitourinary: Yes: WNL Edema: No Neurological: Yes: Oriented Psychiatric: Yes: Oriented Labs: CBC, BMP 08/07/20 04:40 08/07/20 19:20 Problem List - Problems (1) CKD (chronic kidney disease) Code(s): N18.9 - CHRONIC KIDNEY DISEASE, UNSPECIFIED (2) Hypokalemia Code(s): E87.6 - HYPOKALEMIA (3) Hyponatremia Code(s): E87.1 - HYPO-OSMOLALITY AND HYPONATREMIA (4) Palpitations Code(s): R00.2 - PALPITATIONS Assessment/Plan Current Medications Generic Name Dose Route Start Last Admin Trade Name Freq PRN Reason Stop Dose Admin Amlodipine Besylate 10 mg 08/08/20 10:17 08/08/20 09:34 Norvasc - PO Not Given DAILY [facility] Atorvastatin Calcium 20 mg 08/07/20 22:00 08/07/20 21:02 Lipitor - PO 20 mg HS [facility] Administration Heparin Sodium (Porcine) 5,000 unit 08/07/20 14:00 08/08/20 05:56 Heparin - SQ 5,000 unit TID [facility] Administration Spironolactone 25 mg 08/08/20 10:18 08/08/20 09:34 Aldactone - PO Not Given DAILY [facility] Impression 1. hyponatremia 2. hypokalemia 3. htn 4. ckd 5. hld Plan - renal ultrasound reviewed - check cmp - check mag - cardio input appreciated - recommend that he stops the herbal supplements, he was taking about 11 and we do not have FDA data on all of them - wound not restart chlorthalidone - can cont aldactone - monitor bp
[2020-08-08] MEDS: ATORVASTATIN CA 20 MG TABLET (FP) PO SCH (21:10)
[2020-08-08] MEDS: METOPROLOL TARTRATE 25 MG TABLET (FP) PO SCH ×2 (23:18→23:30)
[2020-08-09] MEDS: HEPARIN NA (PORCINE) 5,000 UNITS/ML 1ML VIAL SQ SCH ×2 (06:17→13:49)
[2020-08-09] MEDS: METOPROLOL TARTRATE 25 MG TABLET (FP) PO SCH (06:38)
[2020-08-09 06:45] LABS: ALBUMIN 3.5 g/dl (3.4-5.0); BILIRUBIN,TOTAL 0.3 mg/dL (0.2-1); BLOOD UREA NITROGEN 19.4 mg/dL (7-18); CALCIUM 9.1 mg/dL (8.5-10.1); CREATININE 1.9 mg/dL (0.55-1.3); MAGNESIUM 1.9 mg/dL (1.8-2.4); PHOSPHOROUS 2.5 mg/dL (2.5-4.9); TOT PROT 7.7 g/dl (6.4-8.2)
[2020-08-09] MEDS: amLODIPine BESYLATE 10 MG TABLET (FP) PO SCH (09:04)
[2020-08-09] MEDS: SPIRONOLACTONE 25 MG TABLET PO SCH (09:04)
[2020-08-09 10:24] VITALS: BP 120/72; PULSE 67; TEMP 98.2
--- NOTE | 2020-08-09 11:50 | DS ---
Physical Examination Vital Signs: Vital Signs Temperature 98.2 F 08/09/20 10:00 Pulse Rate 67 08/09/20 10:00 Respiratory Rate 14 08/09/20 10:00 Blood Pressure 120/72 08/09/20 10:00 O2 Sat by Pulse Oximetry (%) 95 08/09/20 10:00 Findings/Remarks: Patient is a 54 y/o male with a history of CKD stage 3 and HTN who presents for palpatations. Patients CKD is related to the HTN, he has recently been taking herbal supplements from [place] to help with his kidney function. The list includes: asparagus racemosus, azadirachta indica, balsamodendron za, berberies arstata, juniper berries, crateva nurvala, celery, marshmallow root, denelion root, kaasni, and tribulus. patient has been feelign palpatations for a few days. Notes the palpatations have been coming and going for a few days, no thing brings it on and they last for a few hours. Patient denies fever chills, dizziness, tremors, syncope, or nausea. (1) Hypokalemia Assessment/Plan: -improved -Supplement KCl -Seen by Nephrology -Monitor trend Problems reviewed: Yes Code(s): E87.6 - HYPOKALEMIA (2) Hyponatremia Assessment/Plan: -Resolved -monitor trend Problems reviewed: Yes Code(s): E87.1 - HYPO-OSMOLALITY AND HYPONATREMIA (3) Palpitations Assessment/Plan: -Resolved -EKG- NSR -Cardiology consult -Tele monitor -Started on Lopressor 25 mg PO BID -Echo outpatient Problems reviewed: Yes Code(s): R00.2 - PALPITATIONS Assessment/Plan See problem lsit Constitutional: Yes: Well Nourished, No Distress, Calm Cardiovascular: Yes: Regular Rate and Rhythm Respiratory: Yes: Regular, CTA Bilaterally Gastrointestinal: Yes: Normal Bowel Sounds, Soft Renal/: Yes: WNL Musculoskeletal: Yes: WNL Extremities: Yes: WNL Edema: No Peripheral Pulses WNL: Yes Neurological: Yes: Alert, Oriented Psychiatric: Yes: Alert, Oriented Labs: CBC, BMP 08/07/20 04:40 08/09/20 05:30 Discharge Summary Problems reviewed: Yes Reason For Visit: PALPITATIONS, HYPONATREMIA, HYPOKALEMIA Current Active Problems CKD (chronic kidney disease) (Acute) Hypokalemia (Acute) Hyponatremia (Acute) Palpitations (Acute) Condition: Stable - Instructions Referrals: Bakari Rios MD, MD [Primary Care Provider] - Lc Allred MD [Staff Physician] - Reymundo Herr MD [Staff Physician] - Disposition: HOME - Home Medications Comprehensive Discharge Medication List: Ambulatory Orders Amlodipine Besylate [Norvasc -] 10 mg PO DAILY 08/07/20 Atorvastatin Calcium [Lipitor] 20 mg PO HS 08/07/20 Chlorthalidone 25 mg PO DAILY 08/07/20 Spironolactone 25 mg PO DAILY 08/07/20 Prescription Drug Monitoring Program (I-STOP) results: I-STOP reviewed and no issues identified
--- NOTE | 2020-08-09 13:49 | PN ---
Progress Note, Physician Chief Complaint: No complaints Occasional pvc on tele History of Present Illness: 54 year old male with a pmhx of ckd, htn, and hld who was recently started on many different herbal supplements. He has been noticing hand and feet cramping and "feeling like they are falling asleep". He than noticed HR elevated so came to the ER. Denies any chest pain or sob or any history of this. Walks often with no exertional complaints. Says he doesn't really feel palpitations but occasional skipped beat. Found to be hyponatremic and hypokalemic. Feels fine at this time. Denies drug or etoh use. Drinks two cups green tea as well a day. EKG sinus rhythm, bren, no ischemic changes Tele: sinus with pvc's Na 125 and K 3.2 - Current Medication List Current Medications: Active Medications Amlodipine Besylate (Norvasc -) 10 mg PO DAILY [facility] Last Admin: 08/09/20 09:04 Dose: 10 mg Documented by: Atorvastatin Calcium (Lipitor -) 20 mg PO HS [facility] Last Admin: 08/08/20 21:10 Dose: 20 mg Documented by: Heparin Sodium (Porcine) (Heparin -) 5,000 unit SQ TID [facility] Last Admin: 08/09/20 06:17 Dose: 5,000 unit Documented by: Metoprolol Tartrate (Lopressor -) 25 mg PO BID [facility] Last Admin: 08/09/20 06:38 Dose: 25 mg Documented by: Spironolactone (Aldactone -) 25 mg PO DAILY [facility] Last Admin: 08/09/20 09:04 Dose: 25 mg Documented by: - Objective Vital Signs: Vital Signs Temperature 98.2 F 08/09/20 10:00 Pulse Rate 67 08/09/20 10:00 Respiratory Rate 14 08/09/20 10:00 Blood Pressure 120/72 08/09/20 10:00 O2 Sat by Pulse Oximetry (%) 95 08/09/20 10:00 Constitutional: Yes: No Distress Cardiovascular: Yes: Regular Rate and Rhythm, S1, S2. No: JVD, Murmur Respiratory: Yes: CTA Bilaterally Gastrointestinal: Yes: Soft Edema: No Labs: CBC, BMP 08/07/20 04:40 08/09/20 05:30 Problem List - Problems (1) Hypokalemia Code(s): E87.6 - HYPOKALEMIA (2) Palpitations Code(s): R00.2 - PALPITATIONS Assessment/Plan 54 year old male with a pmhx of ckd, htn, and hld who was recently started on many different herbal supplements. He has been noticing hand and feet cramping and "feeling like they are falling asleep". He than noticed HR elevated so came to the ER. Denies any chest pain or sob or any history of this. Walks often with no exertional complaints. Says he doesn't really feel palpitations but occasional skipped beat. Found to be hyponatremic and hypokalemic. Feels fine at this time. EKG sinus rhythm, bren, no ischemic changes Tele: sinus with pvc's Na 125 and K 3.2 1) CV/palpitations EKG with no ischemic changes. No chest pain or sob. Tele sinus with pvc's Correct Na and K. Stop clorthalidone Continue amlodipine and spironolactone Started metoprolol 25mg q12 given pvc's No murmurs on exam or signs of chf. CXR clear lungs Would plan for echocardiogram and 30 day event monitor which can be done as an outpatient. If remains K on low normal side than consider renin/massimo levels as outpatient to look for secondary causes of htn and hypokalemia Stop the herbal supplements and green tea. Can follow up upon discharge with Dr. Allred [phone] Pamela Holm at Dr. Varela's office.
--- NOTE | 2020-08-09 14:35 | PN ---
Progress Note, Physician History of Present Illness: Pt seen and examined at bedside. He is awake and alert. he denies shortness of breath. - Current Medication List Current Medications: Active Medications Amlodipine Besylate (Norvasc -) 10 mg PO DAILY [facility] Last Admin: 08/09/20 09:04 Dose: 10 mg Documented by: Atorvastatin Calcium (Lipitor -) 20 mg PO HS [facility] Last Admin: 08/08/20 21:10 Dose: 20 mg Documented by: Heparin Sodium (Porcine) (Heparin -) 5,000 unit SQ TID [facility] Last Admin: 08/09/20 13:49 Dose: 5,000 unit Documented by: Metoprolol Tartrate (Lopressor -) 25 mg PO BID [facility] Last Admin: 08/09/20 06:38 Dose: 25 mg Documented by: Spironolactone (Aldactone -) 25 mg PO DAILY [facility] Last Admin: 08/09/20 09:04 Dose: 25 mg Documented by: - Objective Vital Signs: Vital Signs Temperature 98.2 F 08/09/20 10:00 Pulse Rate 67 08/09/20 10:00 Respiratory Rate 14 08/09/20 10:00 Blood Pressure 120/72 08/09/20 10:00 O2 Sat by Pulse Oximetry (%) 95 08/09/20 10:00 Constitutional: Yes: Calm Eyes: Yes: Conjunctiva Clear HENT: Yes: Atraumatic Cardiovascular: Yes: S1, S2 Respiratory: Yes: CTA Bilaterally Gastrointestinal: Yes: Normal Bowel Sounds, Soft Genitourinary: Yes: WNL Musculoskeletal: Yes: WNL Edema: No Integumentary: Yes: WNL Neurological: Yes: Oriented Psychiatric: Yes: Oriented Labs: CBC, BMP 08/07/20 04:40 08/09/20 05:30 Problem List - Problems (1) CKD (chronic kidney disease) Code(s): N18.9 - CHRONIC KIDNEY DISEASE, UNSPECIFIED (2) Hypokalemia Code(s): E87.6 - HYPOKALEMIA (3) Hyponatremia Code(s): E87.1 - HYPO-OSMOLALITY AND HYPONATREMIA (4) Palpitations Code(s): R00.2 - PALPITATIONS Assessment/Plan Current Medications Generic Name Dose Route Start Last Admin Trade Name Freq PRN Reason Stop Dose Admin Amlodipine Besylate 10 mg 08/08/20 10:17 08/09/20 09:04 Norvasc - PO 10 mg DAILY [facility] Administration Atorvastatin Calcium 20 mg 08/07/20 22:00 08/08/20 21:10 Lipitor - PO 20 mg HS [facility] Administration Heparin Sodium (Porcine) 5,000 unit 08/07/20 14:00 08/09/20 13:49 Heparin - SQ 5,000 unit TID [facility] Administration Metoprolol Tartrate 25 mg 08/08/20 22:45 08/09/20 06:38 Lopressor - PO 25 mg BID [facility] Administration Spironolactone 25 mg 08/08/20 10:18 08/09/20 09:04 Aldactone - PO 25 mg DAILY [facility] Administration Laboratory Tests 08/07/20 06:28 Urine Protein Negative Urine Blood Negative Impression 1. hyponatremia 2. hypokalemia 3. htn 4. ckd 5. hld Plan - renal function stable, pt has ckd, will need outpt follow up - ua neg for blood or protein - cardio input appreciated - pt to stop herbal supplements - can cont aldactone - bp is stable
== END 2020-08-09 16:15 | disposition home or self-care (01) | DRG 641 ==
LOC: JER 03:23 → JERBED 06:16 → JICU 14:13
PROVIDERS: ADMIT Internal Medicine; ATTEND Family Medicine
DX: E87.1 Hypo-osmolality and hyponatremia (principal); N17.9 Acute kidney failure, unspecified; E87.6 Hypokalemia; I12.9 Hypertensive chronic kidney disease with stage 1 through stage 4 chronic kidney disease, or unspecified chronic kidney disease; N18.30 Chronic kidney disease, stage 3 unspecified; E78.5 Hyperlipidemia, unspecified
CPT/HCPCS: 36415; 71046-TC-FY; 76775-TC; 76856-TC; 80048; 80053; 81003; 82533; 82550; 82553; 83735; 83930; 83935; 84100; 84300; 84443; 84484; 85025; 93005; 93010; 99285-25; G0008; J1644; Q2036; U0003

== ENCOUNTER 2022-10-18 11:35 | Emergency (ER) | payer BC, OTHER ==
[2022-10-18 11:43] VITALS: RESP 18; TEMP 97.2; BMI 32.2
[2022-10-18 14:29] LABS: BASO % 0.7 % (0-2.0); EOS % 6.2 % (0-4.5); HEMATOCRIT 46.8 % (35.4-49); HEMOGLOBIN 15.1 GM/dL (11.7-16.9); LYMPH % 38.8 % (8-40); MCH 26.8 pg (25.7-33.7); MCHC 32.3 g/dl (32.0-35.9); MEAN PLT VOLUME 7.8 fl (7.5-11.1); MONO % 7.6 % (3.8-10.2); NEUT % 46.7 % (42.8-82.8); PLATELET COUNT 380 10^3/uL (134-434); RBC 5.64 M/mm3 (4.00-5.60); RDW 15.4 % (11.9-15.9)
[2022-10-18 14:34] LABS: INR 1.03 (0.83-1.09); PROTHROMBIN TIME (PATIENT) 11.9 SEC (9.7-13.0)
[2022-10-18 14:47] LABS: ALBUMIN 3.9 g/dl (3.4-5.0); BLOOD UREA NITROGEN 14.7 mg/dL (7-18); CALCIUM 8.9 mg/dL (8.5-10.1)
[2022-10-18 14:50] LABS: CREATININE 1.7 mg/dL (0.55-1.3)
[2022-10-18 14:53] LABS: BILIRUBIN,TOTAL 0.4 mg/dL (0.2-1); TOT PROT 8.3 g/dl (6.4-8.2)
[2022-10-18 16:13] VITALS: BP 148/106; PULSE 74
[2022-10-18 16:29] LABS: PH,URINE 6.5 (5.0-8.0); URINE APPEARANCE CLEAR; URINE BILIRUBIN NEGATIVE (NEGATIVE); URINE COLOR YELLOW; URINE GLUCOSE (UA) NEGATIVE (NEGATIVE); URINE KETONE NEGATIVE (NEGATIVE); URINE LEUK ESTERASE NEGATIVE (NEGATIVE); URINE NITRITE NEGATIVE (NEGATIVE); URINE PROTEIN NEGATIVE (NEGATIVE); URINE UROBILINOGEN 0.2 mg/dL (0.2-1.0)
== END 2022-10-18 17:04 | disposition home or self-care (01) ==
LOC: JER 11:35
DX: H11.32 Conjunctival hemorrhage, left eye (principal); I10 Essential (primary) hypertension
CPT/HCPCS: 0241U-QW; 36415; 70450-TC; 71046-TC-FY; 80053; 81003; 84484; 85025; 85610; 85730; 87086; 93005; 93010; 99285-25